=== PATIENT | female | born 1990 ===

== ENCOUNTER → 2019-04-02 | Outpatient (CLI) | payer OTHER ==
--- NOTE | 2019-04-04 11:29 | RADIOLOGY IMAGING REPORT ---
FACILITY: [facility] PATIENT NAME: DOROTEO SPRING : [id number] MR: [id number]: [id number] EXAM DATE: ORDERING PHYSICIAN: DEEPALI SAUNDERS TECHNOLOGIST: Lex Rosales RDMS, VADIM PROCEDURE:US LEFT BREAST COMPARISON:None. INDICATIONS:Palpable lump 3 o'clock position of the Left breast. AREAS SCANNED: The entire Left breast. FINDINGS: In the 3 o'clock position of the Left breast 3cmm from the nipple there is a circumscribed ovoid hypoechoic mass measuring 1.9 x 1.1 x 1.8cm with acoustic enhancement. In the 4 o'clock position of the Left breast 6cm from the nipple there is an 8 x 4 x 7mm circumscribed ovoid hypoechoic nodule. In the 12 o'clock position of the Left breast 9cm from the nipple there is a well circumscribed ovoid hypoechoic nodule measuring 1.7 x 0.9 x1.2cm with acoustic enhancement. In the 1:30 position of the Left breast 9cm from the nipple there is a 9 x 4 x 9mm circumscribed ovoid hypoechoic nodule. In the 2 o'clock position of the Left breast 8cm from the nipple there is a circumscribed ovoid hypoechoic nodule measuring 1.3 x 0.7 x 1.5cm with faint acoustic enhancement. In the 6 o'clock position of the Left breast 5cm from the nipple there is a circumscribed ovoid hypoechoic mass measuring 1.3 x 1 x 0.9cm with acoustic enhancement. DIAGNOSTIC CATEGORY 3--PROBABLY BENIGN FINDING. RECOMMENDATIONS: SIX MONTH FOLLOW-UP ULTRASOUND: LEFT BREAST. IMPRESSION: BIRADS 3: Probably benign finding. There are numerous circumscribed ovoid hypoechoic masses seen throughout the breast as detailed above. 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 Dictated by: Christina Mast M.D. on 04/02/2019 at 16:11 Transcribed by: DAMON on 04/04/2019 at 10:44 Approved by: Christina Mast M.D. on 04/04/2019 at 11:23 [facility]
== END ==
LOC: MAMO 14:02
PROVIDERS: ATTEND Physician Assistant
DX: N63.21 Unspecified lump in the left breast, upper outer quadrant (principal); N63.23 Unspecified lump in the left breast, lower outer quadrant